=== PATIENT | female | born 2000 | race Caucasian/White ===

== ENCOUNTER 2023-08-05 22:14 | Emergency (ER) | payer OTHER, SELFPAY ==
[2023-08-05 22:14] VITALS: BMI 23.0
[2023-08-05 22:16] VITALS: BP 149/91
[2023-08-05 22:30] VITALS: BP 130/93
[2023-08-05 23:00] VITALS: BP 113/80
--- NOTE | 2023-08-05 23:04 | ED.GENMED ---
History of Present Illness
General
Chief Complaint: Abdominal Pain
Source: patient
Exam Limitations: none
Time Seen by Provider: 08/05/23 22:48
Travel History
Have you had any contact with someone who has COVID-19?: No
Do you have any symptoms of coronavirus? Fever > 100 degrees, chills, cough, shortness of breath, sore throat, loss of taste or smell, muscle aches, or headache?: No
History of Present Illness
History of Present Illness:
This is a 23 year old female that comes in with c/o abd pain. States that she started at 5am with abd pain when she was working upstairs. States that the pain is on the left sided and it was like a gas pain. States that she went home and laid down
and there was some relief but the pain woke her. States that the pain in now more in the middle of her abd. States that she is also nauseated. Denies any fever, chills, chest pain, SOB, vomiting, diarrhea, headache, dizziness, urinary burning.
Past History
Past History
ED Past Medical History: Other (Coarctation)
ED Past Surgical History: Cardiac (Cardiac surgery)
Social History
Tobacco: Non-smoker
Alcohol: Occasional
Personal: Single
Living: with family
Employment: Employed
Review of Systems
Review of Systems
All Other Systems: ROS reviewed and negative except as documented in HPI and ROS
Constitutional: Reports no symptoms; Denies fever or chills
EENT: Reports no symptoms
Respiratory: Reports no symptoms; Denies cough or trouble breathing
Cardiac: Reports no symptoms; Denies chest pain
ABD/GI: Reports abdominal pain and nausea; Denies vomiting or diarrhea
: Reports no symptoms; Denies dysuria, frequency or urgency
Musculoskeletal: Reports no symptoms
Skin: Reports no symptoms
Neurological: Reports no symptoms; Denies dizzy or headache
Psychiatric: Reports no symptoms
Phy Exam
General Physical Exam
General Presentation: well appearing and no apparent distress
General age: appears stated age
General Skin: warm and dry
General Habitus: normal
General Mental: alert
General Hydration: appears well hydrated
ENT Exam
ENT Exam: TM's normal, pharynx normal and neck supple
Eye Exam
Eye Exam: EOMI
Cardiovascular Exam
Cardiovascular Exam: regular rate/rhythm, no edema, no murmur and normal peripheral pulses
Pulmonary Exam
Pulmonary Exam: lungs clear, no respiratory distress, no rales, chest non tender, no crackles, no rhonchi, no wheezing and no cough
Gastrointestinal Exam
Gastrointestinal Exam: normal bowel sounds, soft, no organomegaly, no pulsatile mass, non distended and tender (Mid abd tenderness with palpation)
Musculoskeletal Exam
Musculoskeletal Exam: full ROM and no edema
Skin Exam
Skin Exam: normal color, warm/dry, no rash and no petechia
Psychiatric Exam
Psychiatric Exam: normal mood/affect
Course
Orders/Labs/Results
Orders:
Orders
08/05/23 23:01
0.9% Sodium Chloride 1000 ml [Nss] 1,000 ml IV BOLUS
Iohexol [Omnipaque] See Protocol PO NOW STA
08/05/23 23:02
Test Result ONCE
08/05/23 23:07
Ondansetron Injectable [Zofran] 4 mg IV NOW STA
08/05/23 23:10
Complete Blood Count/With Diff Urgent
Comprehensive Metabolic Panel Urgent
HCG, Serum Qualitative Screen Urgent
Urinalysis Reflex To Culture Urgent
Date Specimen was Collected: 08/05/23
Time Specimen was Collected: 23:05
Urine Microscopic Reflex Cult Urgent
08/06/23 01:00
CT Abd/pel W Iv And Oral Contr Urgent
Reason For Exam: lOWER ABD PAIN
Abnormal Lab Results
08/05/23
23:10
Absolute Neuts (auto) 7.5 H 10^3/uL
(1.4-6.5)
Neutrophils % 80.5 H %
(42.2-75.2)
Lymphocytes % 14.4 L %
(20.5-51.1)
Carbon Dioxide 21 L mmol/L
(22-30)
Glucose 116 H mg/dl
(70-99)
Calcium 11.7 H mg/dl
(8.4-10.2)
Total Bilirubin 2.3 H mg/dl
(0.2-1.3)
Total Protein 8.6 H g/dl
(6.3-8.2)
Albumin 5.3 H g/dl
(3.5-5.0)
Urine Ketones 1+ A
(Negative)
Ur Occult Blood Reflex 2+ A
(Negative)
Urine RBC 7-10 A /HPF
(0-2)
Urine Bacteria (Reflex) Few A
(Negative)
08/05/23 23:10
08/05/23 23:10
glucose nonfasting, Calcium slightly elevated. Total cindy elevation. Total protein slightly elevate Urine negaative for infection HCG negative.
Vital Signs
Initial and Last Documented VS:
Initial Vital Signs
Temp Pulse Resp BP Pulse Ox
98.2 F 98 16 149/91 99
08/05/23 22:16 08/05/23 22:16 08/05/23 22:16 08/05/23 22:16 08/05/23 22:16
Last Documented Vital Signs
Temp Pulse Resp BP Pulse Ox
98.2 F 98 16 110/68 97
08/05/23 22:16 08/05/23 22:16 08/05/23 22:16 08/06/23 01:56 08/06/23 01:56
MDM/Problems Addressed
Differential Diagnosis Includes:
UTI, Appendicitis
MDM/Problems Addressed:
This is a 23 year old female that comes in with c/o abd pain. States that this started at 5am today. States that she works at night and when she got home and laid down it was a little better. Then it awoke her with pain. States that the pain moved
from the left side to the middle of the lower abd.
will get labs and Ct scan.
Chronic conditions affecting care:
NA
Acute Exacerbation and/or Progression of Chronic Illness:
NA
*Radiology
Radiology exam reviewed: radiology read reviewed (CT=NO CT abnormalities aidentified to sexplain the patients' symptoms. NO evidence of appendicitis, Intestinal obstruction, bowl inflammatory process, nephrolithiasis, hydronephrosis, cholecystitis
or abscess formation .)
*Pulse Oximetry
Patient hypoxic: no
*EKG
Interpreted by ED Provider?: NA
Rate: EKG- N/A
*Metal Fitter Interpretation
Rate: Metal Fitter- N/A
*Critical Care Note
Total Time (30-74mins, 75-104mins- exclusive of procedures): Not Applicable
ED Attending Note
-
Portions of this chart may have been created with voice recognition software.� Occasional wrong word or��sound alike� substitutions may have occurred due to the inherent limitations of voice recognition software.
Discharge Plan
Departure
Patient Disposition: Home (Routine Discharge)
Date of Disposition: 08/06/23
Patient with high blood pressure during this ER visit?: Yes
Condition: Good
Covid-19: Not Applicable
Discharge Problem:
Abdominal pain
Referrals:
Min Paredes, DO [Family Provider] -
Interventions
Interventions:
*Risk Screen - Suicide Last Done: 08/05/23 22:33
*General Assessment Last Done: 08/05/23 22:16
*Neglect/Abuse Screening Last Done: 08/05/23 22:33
ED- Fall Risk Assessment Last Done: 08/06/23 02:04
*ED COVID-19 Vaccine History Last Done: 08/05/23 22:33
*Nursing Disposition Last Done: 08/06/23 02:04
IX-Cyeast-Jueizaxvea Assessment Last Done: 08/05/23 22:33
Discharge Date and Time
Discharge Date/Time: 08/06/23 02:03
Print Language: STATELESS
[2023-08-05] MEDS: OMNIPAQUE 50 ML PO (23:07)
[2023-08-05] MEDS: NSS 1000 IV (23:14)
[2023-08-05 23:16] LABS: % Basophils 0.2 % (0-2); % Eosinophils 0.2 % (0-6); % Immature Granulocytes 0.4 % (0-0.5); % Lymphocytes 14.4 % (20.5-51.1); % Monocytes 4.3 % (1.7-9.3); % Neutrophils 80.5 % (42.2-75.2); Absolute Lymphocytes 1.4 10^3/uL (1.2-3.4); Absolute Monocytes 0.4 10^3/uL (0.1-0.6); Absolute Neutrophils 7.5 10^3/uL (1.4-6.5); Hematocrit 40.2 % (37.0-47.0); Hemoglobin 14.2 g/dL (12.0-16.0); Mean Corp Hgb Conc. 35.3 g/dL (33.0-37.0); Mean Corpuscular Volume 87.8 fL (81.0-99.0); Mean Platelet Volume 9.6 fL (7.4-10.4); Nucleated Red Blood Cells % 0 %; Platelet Count 255 10^3/uL (130-400); Red Blood Cell Count 4.58 10^6/uL (4.20-5.40); Red Cell Dist. Width 11.9 % (11.5-14.5); White Blood Cell Count 9.4 10^3/uL (4.8-10.8)
[2023-08-05 23:20] LABS: Urine Albumin Negative (Neg - Trace); Urine Bilirubin Negative (Negative); Urine Character Clear (Clear); Urine Color Yellow; Urine Glucose Negative (Negative); Urine Ketone 1+ (Negative); Urine Leukocyte Negative (Negative); Urine Nitrite Negative (Negative); Urine Occult Blood 2+ (Negative); Urine Specific Gravity 1.015 (<1.030); Urine Urobilinogen Negative (Neg - 1+)
[2023-08-05 23:29] LABS: Urine Bacteria Few (Negative); Urine White Cell 0-2 /HPF (0-5)
[2023-08-05] MEDS: ZOFRAN 4 MG IV (23:37)
[2023-08-05 23:41] LABS: HCG, Serum Qualitative Screen Negative
[2023-08-05 23:50] LABS: ALT (SGPT) 18 U/L (0-35); AST (SGOT) 30 U/L (14-36); Albumin 5.3 g/dl (3.5-5.0); Alkaline Phosphatase 62 U/L (38-126); Blood Urea Nitrogen 11 mg/dl (7-17); Calcium 11.7 mg/dl (8.4-10.2); Carbon Dioxide 21 mmol/L (22-30); Chloride 100 mmol/L (98-107); Estimated Creatinine Clearance 108 ml/min; Glucose 116 mg/dl (70-99); Potassium 3.8 mmol/L (3.5-5.1); Sodium 138 mmol/L (135-145); Total Bilirubin 2.3 mg/dl (0.2-1.3); Total Protein 8.6 g/dl (6.3-8.2); eGFR > 60.00
[2023-08-06 00:04] VITALS: BP 121/63
[2023-08-06 01:00] VITALS: BP 115/76
[2023-08-06 01:56] VITALS: BP 110/68
--- NOTE | 2023-08-06 04:46 | DOWNTIME ---
There was a [employer] Downtime on 08/06/2023 from 0100 to 08/06/2023 at 0439. Downtime documentation of patient's care, including medication administrations, has been reconciled in the electronic record per guidelines. Refer to the
patient's paper chart under the miscellaneous tab to see printed paper medication records and downtime forms.
== END 2023-08-06 02:03 | disposition home or self-care (01) ==
LOC: EMR 22:14
PROVIDERS: Clinical Nurse Specialist Family Health; EMERGENCY PHYSICIAN Student in an Organized Health Care Education/Training Program; FAMILY PHYSICIAN Family Medicine
DX: R10.30 Lower abdominal pain, unspecified (principal); R11.0 Nausea
CPT/HCPCS: 99285; 96374; 96361; 74177; 80053; 81003; 81015; 84703; 85025; Q9967